=== PATIENT | female | born 1945 | race Two or more races ===

== ENCOUNTER 2022-03-27 05:45 | Day surgery (SDC) | payer OTHER | END 2022-03-27 09:45 | disposition home or self-care (01) | LOC: AMB-ENDOS 05:45 | PROVIDERS: ATTEND Colon & Rectal Surgery | DX: D12.3 Benign neoplasm of transverse colon (principal); Z20.822 Contact with and (suspected) exposure to COVID-19; Z86.010 Personal history of colon polyps; K64.1 Second degree hemorrhoids; E11.9 Type 2 diabetes mellitus without complications; E78.5 Hyperlipidemia, unspecified; I10 Essential (primary) hypertension; Z79.84 Long term (current) use of oral hypoglycemic drugs; Z79.82 Long term (current) use of aspirin ==

== ENCOUNTER 2023-06-18 06:10 | Day surgery (SDC) | payer OTHER ==
[2023-06-13 15:18] LABS: HEMATOCRIT 37.8 % (36.0-45.00); HEMOGLOBIN 12.3 g/dL (12.0-15.00); MEAN CELL VOLUME 90.9 fL (80.00-100.00); MEAN CORPUSCULAR HEMOGLOBIN 29.6 pg (27.00-32.0); MEAN CORPUSCULAR HGB CONC 32.5 g/dl (32.0-36.0); PLATELET COUNT 375 K/uL (150-450); RED BLOOD COUNT 4.16 M/uL (4.00-6.00); RED CELL DISTRIBUTION WIDTH 13.6 % (11.5-14.5)
== END 2023-06-18 10:30 | disposition home or self-care (01) ==
LOC: AMB-ENDOS 06:10
PROVIDERS: ATTEND Colon & Rectal Surgery
DX: K62.4 Stenosis of anus and rectum (principal); Z86.010 Personal history of colon polyps; K64.1 Second degree hemorrhoids; D12.3 Benign neoplasm of transverse colon

== ENCOUNTER 2024-07-28 06:41 | Day surgery (SDC) | payer OTHER ==
[2024-07-29] MEDS ORDERED: DIPHENHYDRAMINE HCL 50 MG/ML VIAL 1ML IV ONE (08:00)
[2024-07-29] MEDS ORDERED: FentaNYL CITRATE/PF 50MCG/ML 2ML VIAL IJ ONE (08:00)
[2024-07-29] MEDS ORDERED: MIDAZOLAM HCL 2 MG/2 ML VIAL IV ONE (08:00)
== END 2024-07-28 10:30 | disposition home or self-care (01) ==
LOC: AMB-ENDOS 06:41
PROVIDERS: ATTEND Colon & Rectal Surgery
DX: K57.30 Diverticulosis of large intestine without perforation or abscess without bleeding (principal); K62.4 Stenosis of anus and rectum; Z86.0100 Personal history of colon polyps, unspecified